=== PATIENT | female | born 1970 | race African-American/Black ===

== ENCOUNTER 2016-08-29 15:29 | Emergency (ER) | payer SELFPAY ==
[~2016-08-29] VITALS: Ht 165.1 cm; Wt 126.6 kg
[~2016-08-29 15:29] MED LIST: BENADRYL ALLERG25 M1 PO; CEPHALEXIN500 MG ORAL; CLOTRIMAZOLE15 GM TOPIC; DIABETA2.5 MG ORAL; DIABETA2.5 MG PO; FLUCONAZOLE100 MG ORAL; FLUCONAZOLE150 MG ORAL; GLUCOPHAGE500 MG PO; IBUPROFEN600 MG PO; MACROBID100 MG ORAL; METFORMIN HCL500 M1 ORAL; ROBITUSSIN100 MG/52 PO; TYLENOL500 MG PO
[2016-08-29 16:31] VITALS: BP 122/82
[2016-08-29 16:44] LABS: APPEARANCE,URINE CLEAR; KETONES,URINE 1+ (NEGATIVE); LEUKOCYTE ESTERASE ,URINE 2+ (NEGATIVE); NITRITE,URINE NEGATIVE (NEGATIVE); PH,URINE 6 (4.5-8.0); PROTEIN,URINE 1+ (NEGATIVE); UROBILINOGEN,URINE NORMAL MG/DL (0.0-1.0)
[2016-08-29 16:55] LABS: BACTERIA,URINE OCCASIONAL /HPF; RBC,URINE 0-2 /HPF (0 - 2); SQUAMOUS EPITHELIAL CELL,UR MODERATE /LPF (NONE/OCC); WBC,URINE 15-20 /HPF (0 - 2)
--- NOTE | 2016-08-29 17:38 | Emergency Room Report ---
History of Present Illness General Chief Complaint: Female Urogenital Problems Source: Patient Present Illness HPI 46-year-old female presents emergency department complaining of 6/10 in severity vaginal burning sensation with thick white vaginal discharge times one week. Patient states that she was treated approximately one month ago for yeast infection patient states that she feels as though she is habitually getting yeast infections. Patient reports moderate itching and tenderness to the external vaginal labia. Patient denies fevers chills or . Patient reports dysuria. Patient reports unprotected intercourse with her . She denies tender palpable lymph nodes or vesicular lesions in the groin. Patient denies recent antibiotic use. Denies CP, Palpitations, LOC, AMS , dizziness, Changes in Vision, Sensation, paresthesias, or a sudden severe headache. Allergies: Coded Allergies: STRAWBERRY (Verified Allergy, Severe, Anaphylaxis, 12/21/11) CIPROFLOXACIN (Verified Allergy, Unknown, 03/05/14) ERYTHROMYCIN BASE (Verified Allergy, Unknown, 03/05/14) Uncoded Allergies: pickles (Allergy, Mild, Itching, 03/05/14) makes her lips itch Patient History Past Medical History: see triage record Past Surgical History: none Pertinent Family History: none Last Menstrual Period: 08/15/16 Now: No Reviewed Nursing Documentation: PMH: Agreed, PSxH: Agreed Nursing Documentation-PMH Hx Diabetes: Yes Review of Systems All Other Systems: negative except mentioned in HPI Physical Exam Vital Signs Date Time Temp Pulse Resp B/P Pulse Ox O2 Delivery O2 Flow Rate FiO2 08/29/16 15:37 98.4 114 15 122/82 96 Room Air Sp02 EP Interpretation: reviewed, normal General Appearance: no apparent distress, alert, GCS 15, non-toxic Head: normocephalic, atraumatic Eyes: bilateral eye PERRL, bilateral eye normal inspection ENT: hearing grossly normal, normal pharynx, no angioedema, normal voice Neck: full range of motion, supple/symm/no masses Respiratory: lungs clear, normal breath sounds, speaking full sentences Cardiovascular #1: regular rate, rhythm, no edema Gastrointestinal: normal bowel sounds, non tender, soft, no guarding, no rebound Rectal: deferred Genitourinary: normal inspection, no CVA tenderness, adnexa normal, os closed, other - moderate erythema, swelling and white d/c noted to the external vaginal labia, there is macerated appearance that extends up into the thighs bilaterally , no LAD, no vessicles, no blistering. NO CMT, THICK white d/c noted in the vaginal vault on pelvic exam. Musculoskeletal: back normal, gait/station normal, normal range of motion, non- tender, no calf tenderness Neurologic: alert, oriented x3, responsive, motor strength/tone normal, sensory intact, speech normal Psychiatric: judgement/insight normal, memory normal, mood/affect normal Skin: normal color, warm/dry, well hydrated, rash - moderate erythema, swelling and white d/c noted to the external vaginal labia, there is macerated appearance that extends up into the thighs bilaterally, no LAD, no vessicles, no blistering. Lymphatic: no adenopathy Medical Decision Making PA Attestation Dr. Vaughn is my supervising Physician whom patient management has been discussed with. Diagnostic Impression: Primary Impression: Vaginitis Qualified Codes: N76.1 - Subacute and chronic vaginitis Additional Impression: UTI (urinary tract infection) Qualified Codes: N30.00 - Acute cystitis without hematuria ER Course 46-year-old female presents emergency department complaining of 6/10 in severity vaginal burning sensation with thick white vaginal discharge times one week. Patient states that she was treated approximately one month ago for yeast infection patient states that she feels as though she is habitually getting yeast infections. Patient reports moderate itching and tenderness to the external vaginal labia. Patient denies fevers chills or . Patient reports dysuria. Patient reports unprotected intercourse with her . She denies tender palpable lymph nodes or vesicular lesions in the groin. Patient denies recent antibiotic use. Denies CP, Palpitations, LOC, AMS , dizziness, Changes in Vision, Sensation, paresthesias, or a sudden severe headache. Ddx considered but are not limited to UTi , Pyelo, STI, Stone, Cystitis, vaginal laceration, vaginitis. Vital signs: are WNL, pt. is afebrile H& PE are most consistent with: severe external vaginitis. ORDERS: - UA labs are attached: few bacteria with elevated WBC's and leuks consistent with UTI -Urine G & C Culture: Pending -Wet [place] Prep: positive for yeast. ED INTERVENTIONS: -Diflucan 150mg PO DISCHARGE: At this time pt. is stable for d/c to home. Will provide printed patient care instructions, and any necessary prescriptions. Care plan and follow up instructions have been discussed with the patient prior to discharge. Labs Test 08/29/16 16:22 Urine Color Pale yellow Urine Appearance Clear Urine pH 6 (4.5-8.0) Urine Specific [place] 1.020 (1.005-1.035) Urine Protein 1+ (NEGATIVE) Urine Glucose (UA) 4+ (NEGATIVE) Urine Ketones 1+ (NEGATIVE) Urine Occult Blood 1+ (NEGATIVE) Urine Nitrite Negative (NEGATIVE) Urine Bilirubin Negative (NEGATIVE) Urine Urobilinogen Normal MG/DL (0.0-1.0) Urine Leukocyte Esterase 2+ (NEGATIVE) Urine RBC 0-2 /HPF (0 - 2) Urine WBC 15-20 /HPF (0 - 2) Urine Squamous Epithelial Cells Moderate /LPF (NONE/OCC) Urine Bacteria Occasional /HPF (NONE) Last Vital Signs Date Time Temp Pulse Resp B/P Pulse Ox O2 Delivery O2 Flow Rate FiO2 08/29/16 16:31 98.4 79 15 122/82 96 Room Air Disposition: HOME, SELF-CARE Condition: Stable Scripts Clotrimazole (Clotrimazole) 30 Gm Cream..g. 30 GM TP BID, #30 GM Prov: Jenny Shelton 08/29/16 Fluconazole (DIFLUCAN) 150 Mg Tablet 150 MG PO DAILY for 3 Days, #3 TAB Prov: Jenny Shelton 08/29/16 Nitrofurantoin Monohyd/M-Cryst* (MACROBID 100 MG*) 100 Mg Capsule 100 MG ORAL EVERY 12 HOURS for 5 Days, #10 CAP Prov: Jenny Shelton 08/29/16 Patient Instructions: Vaginitis, Urinary Tract Infection Additional Instructions: Take medications as directed. Follow up with PCP in 3-5 days Return sooner to ED if new symptoms occur, or current symptoms become worse. - Please note that this Emergency Department Report was dictated using [employer] intelligence manager technology software, occasionally this can lead to erroneous entry secondary to interpretation by the dictation equipment. Jenny Shelton Aug 29, 2016 17:38
[2016-08-29] MEDS ORDERED: Fluconazole 100mg tab ORAL ONE (19:00)
[2016-08-29] MEDS ORDERED: CLOTRIMAZOLE30 GM TP (19:01)
[2016-08-29] MEDS ORDERED: NITROFURANTOIN100 M2 ORAL (19:01)
[2016-08-29] MEDS ORDERED: DIFLUCAN150 MG PO (19:01)
[2016-08-29 19:14] VITALS: BP 123/79
[2016-08-29 19:18] VITALS: BP 123/79
== END 2016-08-29 19:19 | disposition home or self-care (01) ==
LOC: EMR 19:00
DX: N76.0 Acute vaginitis (principal); N39.0 Urinary tract infection, site not specified; E11.9 Type 2 diabetes mellitus without complications
CPT/HCPCS: 81003; 87086; 87210; 87491; 87590; 99282

== ENCOUNTER 2019-02-08 14:07 | Emergency (ER) | payer OTHER ==
[~2019-02-08] VITALS: Ht 165.1 cm; Wt 117.0 kg
[~2019-02-08 14:07] MED LIST changes: +CLOTRIMAZOLE30 GM TP; +DIFLUCAN150 MG PO; +NITROFURANTOIN100 M2 ORAL
[2019-02-08 14:32] VITALS: BP 133/79
[2019-02-08] MEDS ORDERED: Morphine Sulfate 4mg/ml Inj (IV USE ONLY) IVP ONE (15:00)
[2019-02-08] MEDS ORDERED: Omnipaque-300 100ml vial INJ PRN (15:00)
[2019-02-08 15:37] LABS: BASOPHILS % (AUTO) 0.8 % (0.0-2.0); EOSINOPHILS % (AUTO) 0.6 % (0.0-3.0); HEMATOCRIT 36.9 % (37.0-47.0); HEMOGLOBIN 10.7 G/DL (12.0-16.0); LYMPHOCYTES % (AUTO) 9.4 % (20.0-45.0); MEAN CORPUSCULAR VOLUME 71 FL (80-99); MONOCYTES % (AUTO) 7.2 % (1.0-10.0); NEUTROPHILS % (AUTO) 82.1 % (45.0-75.0); PLATELET COUNT 315 K/UL (150-450); RED BLOOD COUNT 5.19 M/UL (4.20-5.40); RED CELL DISTRIBUTION WIDTH 15.8 % (11.6-14.8); WHITE BLOOD COUNT 11.6 K/UL (4.8-10.8)
[2019-02-08 15:40] LABS: APPEARANCE,URINE CLOUDY; BILIRUBIN, URINE NEGATIVE (NEGATIVE); GLUCOSE, URINE (UA) 4+ (NEGATIVE); KETONES,URINE 3+ (NEGATIVE); LEUKOCYTE ESTERASE ,URINE 1+ (NEGATIVE); NITRITE,URINE POSITIVE (NEGATIVE); PH,URINE 6 (4.5-8.0); PROTEIN,URINE 2+ (NEGATIVE); UROBILINOGEN,URINE 4 MG/DL (0.0-1.0)
[2019-02-08 15:41] LABS: COLOR,URINE YELLOW
[2019-02-08 15:44] LABS: ANION GAP 8 mmol/L (5-15); BLOOD UREA NITROGEN 7 mg/dL (7-18); CALCIUM 8.3 MG/DL (8.5-10.1); CARBON DIOXIDE 27 MMOL/L (21-32); CHLORIDE 99 MMOL/L (98-107); POTASSIUM 3.8 MMOL/L (3.5-5.1); SODIUM 134 MMOL/L (136-145)
[2019-02-08 15:50] LABS: ALANINE AMINOTRANSFERASE 15 U/L (12-78); ALBUMIN 2.9 G/DL (3.4-5.0); ALBUMIN/GLOBULIN RATIO 0.6 (1.0-2.7); ALKALINE PHOSPHATASE 96 U/L (46-116); ASPARTATE AMINO TRANSFERASE 11 U/L (15-37); BILIRUBIN,TOTAL 0.5 MG/DL (0.2-1.0)
[2019-02-08 16:15] VITALS: BP 135/82
[2019-02-08] MEDS ORDERED: cefTRIAXone 1 GM in NS 55 ML IVPB ONE (16:15)
--- NOTE | 2019-02-08 17:31 | Diagnostic Imaging Report ---
Clinical Indication: Abdominal pain Technique: No oral contrast utilized, per emergency room physician request IV administration nonionic contrast. Venous phase spiral acquisition obtained through the abdomen and pelvis. Multiplanar reconstructions were generated. Total dose length product 2184 mGycm. CTDIvol(s) 37 mGy. Dose reduction achieved using automated exposure control Comparison: none Findings: The appendix is normal. There are a few colonic diverticula. No evidence of diverticulitis. No small bowel distention. No free or loculated intraperitoneal gas or fluid. There is a tiny fat-containing umbilical hernia. The liver, gallbladder, bile ducts, pancreas, spleen, adrenals are unremarkable. There is mild left hydronephrosis. No renal or ureteral calculi. The right kidney demonstrates considerable contour irregularity, most likely on the basis of scarring. There is equivocal minimal right perinephric/periureteral fat stranding particularly in the renal pelvis. No right renal or ureteral calculi are demonstrated. No focal renal parenchymal abnormality is related. The uterus is considerably enlarged, demonstrates heterogeneous myometrium most likely on the basis of fibroid changes. The ovaries are unremarkable. The included lung bases demonstrate generalized mild interstitial prominence and faint groundglass airspace opacities. The bones demonstrate mild degenerative spondylosis changes. Impression: Enlarged fibroid uterus Fat stranding in the right renal pelvis and periureteral region, could indicate pyelitis/ureteritis Mild left hydronephrosis, probably partial ureteral obstruction secondary to the enlarged uterus Evidence of chronic right renal scarring Basilar pulmonary critical interstitial prominence and faint groundglass airspace opacities, could indicate pulmonary edema Incidental finding of tiny fat-containing umbilical hernia This agrees with the preliminary interpretation provided overnight by [facility]. The CT scanner at [facility] is accredited by the [employer] and the scans are performed using protocols designed to limit radiation exposure to as low as reasonably achievable to attain images of sufficient resolution adequate for diagnostic evaluation.
[2019-02-08] MEDS ORDERED: ONDANSETRON ODT4 MG BC (18:11)
[2019-02-08] MEDS ORDERED: ACETAMINOPHEN-1 EAC1 ORAL (18:11)
[2019-02-08] MEDS ORDERED: CEPHALEXIN500 MG ORAL (18:11)
[2019-02-08 18:19] VITALS: BP 130/74
--- NOTE | 2019-02-08 21:12 | Emergency Room Report ---
History of Present Illness General Chief Complaint: Abdominal Pain Source: Patient Present Illness HPI 49-year-old female presents ED for evaluation. Patient complaining of lower abdominal pain with nausea and vomiting. 8 out of 10, radiating to the back. Started 3 days ago. Denies fevers or chills. Denies chest pain or shortness of breath. No other aggravating or relieving factors. Denies any other associated symptoms Allergies: Coded Allergies: STRAWBERRY (Verified Allergy, Severe, Anaphylaxis, 12/21/11) CIPROFLOXACIN (Verified Allergy, Unknown, 03/05/14) ERYTHROMYCIN BASE (Verified Allergy, Unknown, 03/05/14) Uncoded Allergies: pickles (Allergy, Mild, Itching, 03/05/14) makes her lips itch Patient History Past Medical History: DM Past Surgical History: none Pertinent Family History: none Social History: Denies: smoking, alcohol use, drug use Last Menstrual Period: 01/25/19 Now: No Immunizations: UTD Reviewed Nursing Documentation: PMH: Agreed; PSxH: Agreed Nursing Documentation-PMH Hx Diabetes: Yes Review of Systems All Other Systems: negative except mentioned in HPI Physical Exam Vital Signs Date Time Temp Pulse Resp B/P (MAP) Pulse Ox O2 Delivery O2 Flow Rate FiO2 02/08/19 14:25 99.3 119 22 133/79 (97) 95 Room Air Sp02 EP Interpretation: reviewed, normal General Appearance: no apparent distress, alert, GCS 15, non-toxic, obese Head: normocephalic, atraumatic Eyes: bilateral eye normal inspection, bilateral eye PERRL ENT: hearing grossly normal, normal pharynx, no angioedema, normal voice Neck: full range of motion, supple/symm/no masses Respiratory: chest non-tender, lungs clear, normal breath sounds, speaking full sentences Cardiovascular #1: regular rate, rhythm, no edema Cardiovascular #2: 2+ carotid (R), 2+ carotid (L), 2+ radial (R), 2+ radial (L) , 2+ dorsalis pedis (R), 2+ dorsalis pedis (L) Gastrointestinal: normal bowel sounds, soft, non-distended, no guarding, no rebound, tenderness - suprapubic Rectal: deferred Genitourinary: normal inspection, no CVA tenderness Musculoskeletal: back normal, normal range of motion, gait/station normal, non- tender Neurologic: alert, motor strength/tone normal, oriented x3, sensory intact, responsive, speech normal Psychiatric: judgement/insight normal, memory normal, mood/affect normal, no suicidal/homicidal ideation Reflexes: 3+ bicep (R), 3+ bicep (L), 3+ tricep (R), 3+ tricep (L), 3+ knee (R) , 3+ knee (L) Lymphatic: no adenopathy Medical Decision Making Diagnostic Impression: Primary Impression: UTI (urinary tract infection) Qualified Codes: N10 - Acute pyelonephritis ER Course Hospital Course 49 yo F presents with abd pain Differential diagnosis includes-appendicitis, cholecystitis, small bowel obstruction, gastritis, Clinical course Patient placed on stretcher. After initial history and physical I ordered labs , IV fluids, pain medications and CT scan Labs - noted leukocytosis, electrolytes ok , LFTs normal, UA + bacteria CT scan shows perinephric/periureteral stranding Given antibiotics. Discussed findings with the patient. Will discharge to home. Nontoxic afebrile. Safe for discharge with close outpatient follow-up. States she has a PMD I feel this is a highly complex case requiring extensive working including EKG/ Rhythm strip, Xray/CT/US, Blood/urine lab work, repeat exams while in ED, and administration of strong opiates/narcotics for pain control, admission to hospital or close patient follow up. Diagnosis - UTI Stable and discharged to home Rx Keflex, Tylenol #3, zofran. Followup with PMD. Return to ED if symptoms recur or worsen Labs Test 02/08/19 15:00 White Blood Count 11.6 K/UL (4.8-10.8) Red Blood Count 5.19 M/UL (4.20-5.40) Hemoglobin 10.7 G/DL (12.0-16.0) Hematocrit 36.9 % (37.0-47.0) Mean Corpuscular Volume 71 FL (80-99) Mean Corpuscular Hemoglobin 20.5 PG (27.0-31.0) Mean Corpuscular Hemoglobin Concent 28.9 G/DL (32.0-36.0) Red Cell Distribution Width 15.8 % (11.6-14.8) Platelet Count 315 K/UL (150-450) Mean Platelet Volume 6.9 FL (6.5-10.1) Neutrophils (%) (Auto) 82.1 % (45.0-75.0) Lymphocytes (%) (Auto) 9.4 % (20.0-45.0) Monocytes (%) (Auto) 7.2 % (1.0-10.0) Eosinophils (%) (Auto) 0.6 % (0.0-3.0) Basophils (%) (Auto) 0.8 % (0.0-2.0) Urine Color Yellow Urine Appearance Cloudy Urine pH 6 (4.5-8.0) Urine Specific [place] 1.015 (1.005-1.035) Urine Protein 2+ (NEGATIVE) Urine Glucose (UA) 4+ (NEGATIVE) Urine Ketones 3+ (NEGATIVE) Urine Blood 2+ (NEGATIVE) Urine Nitrite Positive (NEGATIVE) Urine Bilirubin Negative (NEGATIVE) Urine Urobilinogen 4 MG/DL (0.0-1.0) Urine Leukocyte Esterase 1+ (NEGATIVE) Urine RBC 2-4 /HPF (0 - 2) Urine WBC 10-15 /HPF (0 - 2) Urine Squamous Epithelial Cells Few /LPF (NONE/OCC) Urine Bacteria Many /HPF (NONE) Urine HCG, Qualitative Negative (NEGATIVE) Sodium Level 134 MMOL/L (136-145) Potassium Level 3.8 MMOL/L (3.5-5.1) Chloride Level 99 MMOL/L (98-107) Carbon Dioxide Level 27 MMOL/L (21-32) Anion Gap 8 mmol/L (5-15) Blood Urea Nitrogen 7 mg/dL (7-18) Creatinine 1.0 MG/DL (0.55-1.30) Estimat Glomerular Filtration Rate > 60 mL/min (>60) Glucose Level 376 MG/DL (74-106) Calcium Level 8.3 MG/DL (8.5-10.1) Total Bilirubin 0.5 MG/DL (0.2-1.0) Aspartate Amino Transf (AST/SGOT) 11 U/L (15-37) Alanine Aminotransferase (ALT/SGPT) 15 U/L (12-78) Alkaline Phosphatase 96 U/L (46-116) Total Protein 7.9 G/DL (6.4-8.2) Albumin 2.9 G/DL (3.4-5.0) Globulin 5.0 g/dL Albumin/Globulin Ratio 0.6 (1.0-2.7) Lipase 103 U/L (73-393) CT/MRI/US Diagnostic Results CT/MRI/US Diagnostic Results : Imaging Test Ordered: CT A/P Impression CT ABDOMEN + PELVIS With Contrast: No appendicitis, SBO, or diverticulitis. No hydronephrosis. Mild right perinephric/periureteral stranding, cannot exclude UTI. Possible mild pelvic stranding, correlate clinically for PID. Uterine fibroids. Unremarkable gallbladder and pancreas. Possible mild bibasilar infiltrates, versus artifact. Last Vital Signs Date Time Temp Pulse Resp B/P (MAP) Pulse Ox O2 Delivery O2 Flow Rate FiO2 02/08/19 18:19 98.3 78 16 130/74 97 Room Air Status: improved Disposition: HOME, SELF-CARE Condition: Improved Scripts Ondansetron Odt* (ZOFRAN ODT*) 4 Mg Tab.rapdis 4 MG BC EVERY 6 HOURS PRN for Nausea & Vomiting, #20 TAB 0 Refills Prov: Jose M Orozco MD 02/08/19 Acetaminophen With Codeine (T#3) (TYLENOL #3 TAB*) Y Tab 1 TAB ORAL Q8H PRN for For Pain for 3 Days, #12 TAB Prov: Jose M Orozco MD 02/08/19 Cephalexin* (KEFLEX*) 500 Mg Capsule 500 MG ORAL EVERY 6 HOURS for 7 Days, #28 CAP Prov: Jose M Orozco MD 02/08/19 Patient Instructions: Pyelonephritis, Adult, [id number] Jose M Orozco MD Feb 08, 2019 21:12
== END 2019-02-08 18:20 | disposition home or self-care (01) ==
LOC: EMR 14:45
DX: N39.0 Urinary tract infection, site not specified (principal); R11.2 Nausea with vomiting, unspecified; E11.9 Type 2 diabetes mellitus without complications; D72.829 Elevated white blood cell count, unspecified
CPT/HCPCS: 36415; 74177; 80053; 81003; 81025; 83690; 85025; 87086; 96361; 96365; 96375; 99284; J0696; J2270; J2405; J7030; Q9967; S0028